=== PATIENT | male | born 1950 ===

== ENCOUNTER 2018-11-07 07:26 | Outpatient (CLI) | payer MEDICARE, MEDICAID | END 2018-11-07 07:27 | disposition home or self-care (01) | LOC: C.USIC 07:26 ==

== ENCOUNTER 2018-11-29 07:53 | Outpatient (CLI) | payer MEDICARE | END 2018-11-29 07:54 | disposition home or self-care (01) | LOC: C.LAB 07:53 ==

== ENCOUNTER 2018-12-25 09:55 | Outpatient (CLI) | payer MEDICARE | END 2018-12-25 09:56 | disposition home or self-care (01) | LOC: C.CTH 09:55 | DX: K76.89 Other specified diseases of liver (principal) ==